=== PATIENT | male | born 1955 | race Caucasian/White ===

== ENCOUNTER 2018-01-15 16:48 | Inpatient (IN) ==
[2018-01-15] MEDS ORDERED: PANTOPRAZOLE 40 MG VIAL IV STA (17:20)
[2018-01-15] MEDS ORDERED: SODIUM CHLORIDE 0.9% 500 ML IV STA (17:20)
[2018-01-15] MEDS ORDERED: ONDANSETRON 4 MG/2 ML VIAL IV STA (17:20)
[2018-01-15 17:42] LABS: Basophils # 0.1 10*3/uL (0.0-0.2); Basophils % 0.3 % (0.0-0.8); Eosinophils % 0.1 % (0.00-10.9); Hematocrit 48.2 VOL% (42.0-52.0); Immature Granulocytes % 1.3 %; Immature Granulocytes Absolute 0.21 #; Lymphocytes # 1.6 10*3/uL (1.4-4.0); Lymphocytes % 10.1 % (21.2-54.2); Mean Corpuscular HGB Conc 35.3 GM/DL (32-36); Mean Corpuscular Hemoglobin 29 PG (27-34); Mean Corpuscular Volume 81.8 FL (87-102); Mean Platelet Volume 12.5 FL (9.6-12.0); Monocytes # 0.6 10*3/uL (0.11-0.8); Monocytes % 3.7 % (1.7-12.7); Neutrophils # 13.6 10*3/uL (1.4-7.4); Neutrophils % 84.5 % (38.7-73.9); Platelet Count 244 T/CUMM (130-400); Red Blood Count 5.89 MC/CUMM (3.8-5.5); Red Cell Distribution Width 13.4 % (9.3-17.3); White Blood Count 16.1 T/CUMM (4-12)
[2018-01-15 18:02] LABS: Albumin 3.3 G/DL (3.4-5.0); Bilirubin,Total 1.6 MG/DL (0.2-1.0); Calcium 8.8 MG/DL (8.5-10.1); Osmolality,Calculated 283.3 MOS/KG (273-304); Potassium 5.4 MMOL/L (3.5-5.1); Total Protein 8.3 G/DL (6.4-8.3)
[2018-01-15] MEDS ORDERED: INSULIN REGULAR 100 UNIT/ML IV STA (18:09)
[2018-01-15] MEDS ORDERED: SODIUM CHLORIDE 0.9% 1,000 ML IV STA (18:13)
[2018-01-15 18:26] LABS: ABG HCO3 24.4 MMOL/L (20-26); ABG Oxygen Saturation 94.9 % (95-100); ABG PCO2 37.5 MM HG (35-48); ABG PH 7.417 (7.35-7.45); ABG PO2 74.6 MM HG (80-95); ABG TCO2 20.1 MMOL/L (23-27)
[2018-01-15] MEDS ORDERED: INSULIN LISPRO 100 UNIT/ML SUBCUT STA (18:26)
[2018-01-15] MEDS ORDERED: SODIUM CHLORIDE 0.9% 1,500 ML IV STA (18:26)
[2018-01-15] MEDS ORDERED: ONDANSETRON 4 MG/2 ML VIAL IV PRN (18:27)
[2018-01-15] MEDS ORDERED: GLUCAGON 1 MG VIAL IM PRN (18:27)
[2018-01-15] MEDS ORDERED: PROMETHAZINE 25 MG/1 ML VIAL IM PRN (18:27)
[2018-01-15] MEDS ORDERED: DEXTROSE 50% 25 GM/50 ML VIAL IV PRN (18:27)
[2018-01-15] MEDS ORDERED: ACETAMINOPHEN 325 MG TABLET PO PRN (18:27)
[2018-01-15] MEDS ORDERED: BISACODYL 5 MG TABLET PO ONE (18:36)
[2018-01-15 19:14] LABS: Apearance,Urine CLEAR (Clear); Bilirubin,Urine Negative (Negative); Blood, Urine Small mg/dL (Negative); Glucose,Urine (UA) >=500 mg/dL (Negative); Ketones,Urine 5 mg/dL (Negative); Mucus,Urine Occasional /LPF (Occasional); Nitrite,Urine Negative (Negative); Protein,Urine Negative; Urine Color Yellow (Yellow); Urine Specific Gravity 1.026 (1.001-1.035); Urine Urobilinogen < 2.0 EU/DL (0.2-1.0); WBC,Urine 1 /HPF (0-6)
[2018-01-15 20:21] LABS: Calcium 8.2 MG/DL (8.5-10.1); Osmolality,Calculated 283.1 MOS/KG (273-304); Potassium 4.8 MMOL/L (3.5-5.1)
[2018-01-15 20:30] LABS: Lactic Acid 1.4 MMOL/L (0.4-2.0)
[2018-01-15] MEDS: INSULIN GLARGINE 100 UNIT/ML SUBCUT SCH (22:19)
[2018-01-15] MEDS: ENOXAPARIN 30 MG/0.3 ML SYRINGE SUBCUT SCH (22:20)
[2018-01-15] MEDS: SODIUM CHLORIDE 0.9% 1,000 ML IV SCH (22:21)
[2018-01-16] MEDS: INSULIN REGULAR 100 UNIT/ML SUBCUT SCH ×5 (00:21→21:22)
[2018-01-16] MEDS: SODIUM CHLORIDE 0.9% 1,000 ML IV SCH ×4 (00:42→16:16)
[2018-01-16 06:16] LABS: Basophils # 0.1 10*3/uL (0.0-0.2); Basophils % 0.4 % (0.0-0.8); Eosinophils # 0.3 10*3/uL (0.0-0.87); Eosinophils % 1.8 % (0.00-10.9); Hematocrit 41.1 VOL% (42.0-52.0); Immature Granulocytes % 1.7 %; Immature Granulocytes Absolute 0.26 #; Lymphocytes # 4.5 10*3/uL (1.4-4.0); Lymphocytes % 29.4 % (21.2-54.2); Mean Corpuscular Hemoglobin 29 PG (27-34); Mean Corpuscular Volume 82.2 FL (87-102); Mean Platelet Volume 12.9 FL (9.6-12.0); Monocytes # 0.9 10*3/uL (0.11-0.8); Monocytes % 6.1 % (1.7-12.7); Neutrophils # 9.2 10*3/uL (1.4-7.4); Neutrophils % 60.6 % (38.7-73.9); Platelet Count 202 T/CUMM (130-400); Red Cell Distribution Width 14.2 % (9.3-17.3); White Blood Count 15.1 T/CUMM (4-12)
[2018-01-16 06:19] LABS: Hemoglobin 14.4 GM/DL (14.0-18.0)
[2018-01-16 06:41] LABS: Albumin 2.3 G/DL (3.4-5.0); Bilirubin,Total 0.9 MG/DL (0.2-1.0); Calcium 7.9 MG/DL (8.5-10.1); Osmolality,Calculated 271.1 MOS/KG (273-304); Potassium 3.6 MMOL/L (3.5-5.1); Risk Ratio 12.04; Thyroid Stimulating Hormone 0.596 uIU/ml (0.358-3.74); Total Protein 6.1 G/DL (6.4-8.3); VLDL CHOLESTEROL 212.6 MG/DL
[2018-01-16] MEDS: PANTOPRAZOLE 40 MG TABLET PO SCH (08:44)
[2018-01-16] MEDS ORDERED: PANTOPRAZOLE 40 MG TABLET PO SCH (09:00)
[2018-01-16] MEDS ORDERED: ROSUVASTATIN 10 MG TABLET PO SCH (21:00)
[2018-01-16] MEDS: INSULIN GLARGINE 100 UNIT/ML SUBCUT SCH (21:21)
[2018-01-16] MEDS: ENOXAPARIN 30 MG/0.3 ML SYRINGE SUBCUT SCH (21:23)
[2018-01-17] MEDS: SODIUM CHLORIDE 0.9% 1,000 ML IV SCH (04:58)
[2018-01-17 05:49] LABS: Basophils % 0.2 % (0.0-0.8); Eosinophils % 0.3 % (0.00-10.9); Hematocrit 41.7 VOL% (42.0-52.0); Hemoglobin 14.4 GM/DL (14.0-18.0); Immature Granulocytes % 1.5 %; Immature Granulocytes Absolute 0.14 #; Lymphocytes # 1.3 10*3/uL (1.4-4.0); Lymphocytes % 13.4 % (21.2-54.2); Mean Corpuscular HGB Conc 34.5 GM/DL (32-36); Mean Corpuscular Hemoglobin 30 PG (27-34); Mean Corpuscular Volume 85.5 FL (87-102); Mean Platelet Volume 12.8 FL (9.6-12.0); Monocytes # 0.3 10*3/uL (0.11-0.8); Neutrophils # 7.8 10*3/uL (1.4-7.4); Neutrophils % 81.6 % (38.7-73.9); Platelet Count 155 T/CUMM (130-400); Red Blood Count 4.88 MC/CUMM (3.8-5.5); Red Cell Distribution Width 14.4 % (9.3-17.3); White Blood Count 9.5 T/CUMM (4-12)
[2018-01-17 06:04] LABS: Calcium 7.7 MG/DL (8.5-10.1); Osmolality,Calculated 281.2 MOS/KG (273-304); Potassium 4.7 MMOL/L (3.5-5.1)
[2018-01-17] MEDS: INSULIN REGULAR 100 UNIT/ML SUBCUT SCH ×2 (06:30→11:46)
[2018-01-17] MEDS: PANTOPRAZOLE 40 MG TABLET PO SCH (09:19)
[2018-01-17 14:50] VITALS: BP 129/76
[2018-01-17] MEDS ORDERED: INSULIN GLARGINE 100 UNIT/ML SUBCUT SCH (21:00)
[2018-01-18] MEDS ORDERED: predniSONE 20 MG TABLET PO SCH (09:00)
== END 2018-01-17 15:16 | disposition home or self-care (01) | DRG 638 ==
LOC: N.ED 16:48 → N.EDINP 19:34 → N.5E 20:35
PROVIDERS: ADMIT Internal Medicine; ATTEND Internal Medicine